=== PATIENT | female | born 1965 | race Caucasian/White ===

== ENCOUNTER → 2016-08-14 | Outpatient (CLI) | payer OTHER ==
--- NOTE | 2016-08-14 14:58 | RAD ---
Indication knee pain. No history of injury. AP oblique and lateral views of the right knee were obtained. No fracture or acute finding is seen. There are no significant degenerative changes apparent on plain films. Bony mineralization appears unremarkable IMPRESSION:: No acute or significant finding seen involving the right knee on plain films
== END | disposition home or self-care (01) ==
LOC: DXRADRC 14:38
PROVIDERS: ATTEND Physician Assistant
DX: M25.561 Pain in right knee (principal)
CPT/HCPCS: 73562

== ENCOUNTER → 2017-08-20 | Outpatient (CLI) | payer OTHER ==
[2017-08-20 09:04] LABS: BASO # 0.1 x10^3/uL (0.0-0.2); BASO % 1 % (0-3); EOS # 0.3 x10^3/uL (0.0-0.7); EOS % 5 % (0-3); HEMATOCRIT 44.2 % (36.0-47.0); HEMOGLOBIN 15.2 g/dL (12.0-15.5); LYMPH # 1.3 x10^3/uL (1.0-4.8); LYMPH % 24 % (24-48); MEAN CORPUSCULAR HEMOGLOBIN 31 pg (25-35); MEAN CORPUSCULAR HGB CONC 34 g/dL (31-37); MEAN CORPUSCULAR VOLUME 90 fL (79-100); MONO # 0.4 x10^3/uL (0.0-1.1); MONO % 7 % (0-9); NEUT # 3.5 x10^3uL (1.8-7.7); NEUT % 63 % (31-73); PLATELET COUNT 226 x10^3/uL (140-400); RED CELL DISTRIBUTION WIDTH 12.9 % (11.5-14.5); WHITE BLOOD COUNT 5.5 x10^3/uL (4.0-11.0)
[2017-08-20 09:13] LABS: ALBUMIN 3.9 g/dL (3.4-5.0); ALBUMIN/GLOBULIN RATIO 1.1 (1.0-1.7); CALCIUM 9.9 mg/dL (8.5-10.1); CREATININE 0.8 mg/dL (0.6-1.0); POTASSIUM 3.6 mmol/L (3.5-5.1); TOTAL BILIRUBIN 0.4 mg/dL (0.2-1.0); TOTAL PROTEIN 7.6 g/dL (6.4-8.2)
[2017-08-20 14:00] LABS: THYROID STIM HORMONE (TSH) 2.613 uIU/mL (0.358-3.740)
[2017-08-21 01:08] LABS: ESTRADIOL LEVEL 12.2 pg/mL (.); PROGESTERONE 0.3 ng/mL (.); TESTOSTERONE TOTAL <3 ng/dL (3-41)
[2017-08-21 02:07] LABS: T3 TOTAL 183 ng/dL (71-180); THYROXINE 12.9 ug/dL (4.5-12.0)
[2017-08-21 18:08] LABS: HEMOGLOBIN A1C 6.2 % (4.8-5.6)
[2017-08-22 12:08] LABS: DHEA 64 ng/dL (31-701)
== END | disposition home or self-care (01) ==
LOC: PMG 08:11
PROVIDERS: ATTEND Physician Assistant
DX: I10 Essential (primary) hypertension (principal); E78.5 Hyperlipidemia, unspecified; E89.40 Asymptomatic postprocedural ovarian failure; E55.9 Vitamin D deficiency, unspecified; E66.01 Morbid (severe) obesity due to excess calories; Z83.3 Family history of diabetes mellitus
CPT/HCPCS: 36415; 80053; 80061; 82306; 82670; 82679; 83036; 84144; 84403; 84436; 84443; 84480; 85025; 86141

== ENCOUNTER → 2017-09-03 | Outpatient (CLI) | payer OTHER ==
--- NOTE | 2017-09-03 09:28 | RAD ---
Thyroid ultrasound, 09/03/2017: History: Abnormal thyroid labs The study was partially compromised by the thickness of the patient's neck. The right lobe of the gland measures 4.0 x 1.5 x 1.8 cm, while the left lobe of the gland measures 4.0 x 1.3 x 1.0 cm. No thyroid mass is identified. IMPRESSION: No significant abnormality is detected.
== END | disposition home or self-care (01) ==
LOC: US 08:27
PROVIDERS: ATTEND Physician Assistant
DX: R94.6 Abnormal results of thyroid function studies (principal); I10 Essential (primary) hypertension; E78.5 Hyperlipidemia, unspecified; E55.9 Vitamin D deficiency, unspecified
CPT/HCPCS: 76536

== ENCOUNTER → 2017-09-19 | Outpatient (CLI) | payer OTHER ==
--- NOTE | 2017-09-19 12:18 | RAD ---
Bilateral breast ultrasound, 09/19/2017: History: High breast cancer risk, positive family history Both breasts were carefully scanned. No breast mass or suspicious foci are seen. IMPRESSION: Negative screening breast ultrasound.
== END | disposition home or self-care (01) ==
LOC: US 10:51
PROVIDERS: ATTEND Physician Assistant
DX: R92.8 Other abnormal and inconclusive findings on diagnostic imaging of breast (principal)
CPT/HCPCS: 76641